=== PATIENT | female | born 1995 | race Caucasian/White ===

== ENCOUNTER 2017-06-03 14:46 | Inpatient (IN) ==
[2017-06-03 13:31] LABS: Amphetamine Screen,Urine Negative ng/mL (Cutoff=1000); Barbiturate Screen,Urine Negative ng/mL (Cutoff=200); Benzodiazepines Screen,Urine Negative ng/mL (Cutoff=200); Cannabinoid Screen,Urine Negative ng/mL (Cutoff = 50); Cocaine Screen,Urine Negative ng/mL (Cutoff= 300); Opiate Screen,Urine Negative ng/mL (Cutoff=300); Phencyclidine Screen,Urine Negative ng/mL (Cutoff=25)
--- NOTE | 2017-06-03 14:36 | OB/GYN History & Physical ---
Date of Encounter: 06/03/17 Time of Encounter: 14:20 Assessment and Plan (1) 38 weeks gestation of Current visit: Yes Status: Acute (2) SROM (spontaneous rupture of membranes) Current visit: Yes Status: Acute Nitrazine test was positive. Patient will be admitted for labor and delivery. - IV fluids. - Pain control - FHR monitoring. - NPO - CBC - pain control. History of Present Illness Chief complaint: Labor evaluation HPI: Ms. Shearer is a 21 year old female at 38 4/7 wks gestation that presents for labor evaluation. Patient says she presented to the clinic yesterday with some vaginal bleeding. She says that around 0400 am today she noticed some vaginal fluid leakage. She denies contractions. She admits to good movement. She denies any chest pain, shortness of breath, fever, chills, headaches, vision changes, nausea, and vomiting. GBS: negative Blood Type: A - HIV Ag/Ab: non-reactive T. Pallidum Ab: negative Rubella Ab: positive HepBSAb: non-reactive (12/16/16) All other labs normal. Past Med Surg Social Fam HX - Past Medical History Medical history: no medical history Psychiatric history: bipolar, depression - Social History Smoking Status: Never smoker Smokeless Tobacco Status: No Alcohol use: none Drug use: none Obstetrical History - Pregnancies : 2 Para: 1 Term: 1 : 0 Ab's: 0 Livin Medications and Allergies No Known Home Drugs 06/03/17 [History] 3 Allergy/AdvReac Type Severity Reaction Status Date / Time ciprofloxacin [From Cipro] Allergy Hives Verified 11/15/15 19:46 Exam - Constitutional Constitutional: well developed, well nourished, no acute distress, average body habitus - Lungs Respiratory exam: CTAB - Cardiovascular Cardiovascular exam: RRR, +S1, +S2 - Abdomen Abdomen: Present: bowel sounds normal, gravid, non tender - Extremities Extremities exam: full ROM, normal capillary refill, normal inspection, radial pulses palpable and symmetrical Deep Tendon Reflex Grade: 2+ Normal - Cervix Dilation: 4 (per nurse) Results Result Diagrams: 06/03/17 12:59 All other labs normal. - VTE Reasons for not Prescribing Prophylaxis: Treatment not Indicated - Low risk for VTE - Attending Attestation I examined this patient and my medical decision-making was reviewed with the Resident Physician. I agree with the documented findings, disposition and treatment plan as described except to the extent set forth below. Kirstin Lutz DO
[~2017-06-03 14:46] MED LIST: *HR* Nalbuphine 20 MG/ML AMPUL IVP PRN; Famotidine 20 MG/2 ML VIAL IVP PRN; Metoclopramide 10 MG/2 ML VIAL IVP PRN; Naloxone 0.4 MG/ML INJ IVP PRN; Ondansetron 4 MG/2 ML VIAL IVP PRN
[2017-06-03] MEDS ORDERED: Oxytocin 20 units/ LR 1000 mL 20 UNIT/1,000 ML BAG IVC SCH (15:00)
[2017-06-03] MEDS ORDERED: Ringers Solution, Lactated 1,000 ML IVC SCH (15:00)
[2017-06-03 15:31] LABS: Basophils % 0.2 %; Eosinophils # 0.1 K/mcL (0.0-0.6); Eosinophils % 0.7 %; Hematocrit 31.6 % (35.3-44.9); Hemoglobin 10.3 g/dL (11.5-15.4); Immature Granulocytes % 0.8 % (0-4); Lymphocytes # 2.1 K/mcL (0.6-4.6); Lymphocytes % 20.7 %; Mean Corpuscular HGB Conc 32.6 g/dL (31.6-35.5); Mean Corpuscular Hemoglobin 27.1 pg (28.0-33.3); Mean Corpuscular Volume 83.2 fL (83.0-100.0); Mean Platelet Volume 12.2 fL (9.4-12.4); Monocytes % 9.5 %; Platelet Count 255 K/mcL (140-400); Red Cell Distribution Width 13.6 % (11.5-14.5); Segmented Neutrophils % 68.1 %
[2017-06-03] MEDS ORDERED: Bupivacaine-MPF 0.25% 10 ML VIAL ONE (17:43)
[2017-06-03] MEDS ORDERED: *HR* FentaNYL (PF) 100 MCG/2 ML VIAL ONE (17:43)
[2017-06-03] MEDS ORDERED: Epidural Premix (fent/bupiv) 110 ML EP ONE (17:48)
[2017-06-03] MEDS ORDERED: EPHEDrine 50 MG/ML VIAL IVP PRN (18:23)
[2017-06-03] MEDS ORDERED: Ondansetron 4 MG/2 ML VIAL IVP PRN (18:23)
[2017-06-03] MEDS ORDERED: Bupivacaine-MPF 0.25% 10 ML VIAL EP ONE (18:23)
[2017-06-03] MEDS ORDERED: Naloxone 0.4 MG/ML INJ IVP PRN (18:23)
[2017-06-03] MEDS ORDERED: *HR* FentaNYL (PF) 100 MCG/2 ML VIAL EP ONE (18:23)
--- NOTE | 2017-06-03 18:29 | Anesthesia Evaluation PreOp ---
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 Physician watching growth over time.) Other Medical History: Denies Any Significant HX Anesthesia History: No Prior Anesthetic Complications : Yes Alcohol Use: none Drug use: none Medications and Allergies No Known Home Drugs 06/03/17 [History] 3 Allergy/AdvReac Type Severity Reaction Status Date / Time ciprofloxacin [From Cipro] Allergy Hives Verified 11/15/15 19:46 - Meds/Allergy Pre-op Review Medications Reviewed: Yes Allergies Reviewed: Yes Beta Blockers on Current Med List: No Anesthesia Results - Labs 06/03/17 12:59 Anesthesia Exam BP 121/60 P 73 R 18 Height: 5'9" Weight: 109.4kg NPO (# of Hours): 4 Pain Scale: 10 (with contractions) Pain Scale Used: Numeric (1 - 10) - HEENT Pupil (Motor): Pupils equal Mallampati: II Teeth: Normal Oral Opening: Greater than 3 - MANAGER ASSET MANAGEMENT LOC: Oriented MANAGER ASSET MANAGEMENT Motor: Normal RUE, Normal LUE, Normal RLE, Normal LLE, Normal Face MANAGER ASSET MANAGEMENT Sensory: Normal: RUE, LUE, RLE, LLE, Face - Cardiac Rhythm: Regular Murmur: None JVD: No Carotid Bruit: No - Pulmonary Breath Sounds: bilateral Clear Respiratory Effort: Symmetrical Anesthesia Assess/Plan ASA Score: 2 Modified Skyler Scale for Level of Consciousness: Cooperative, oriented, and tranquil Anesthetic Plan: Regional Autologous Blood: No Monitoring Plan: Standard Monitors Recovery Plan: Other
[2017-06-03] MEDS ORDERED: Epidural Premix (fent/bupiv) 110 ML EP SCH (18:30)
--- NOTE | 2017-06-03 18:39 | Anesthesia Procedures ---
Date of Encounter: 06/03/17 Time of Encounter: 17:53 Procedures: Anesthesia - Epidural/Spinal Patient ID/Chart reviewed: Yes Patient examined: Yes OB Eval: Gestational age: 38 weeks OB Eval: : 2 OB Eval: Hx Para: 1 OB Eval: Dilated at (cm): 5 OB Eval: Contractions: Non-stressed pattern Consent Obtained: Yes Supplemental Oxygen: None/Room Air Site Prep: Aseptic Technique, Sterile prep and drape, Povidone-Iodine 1% Patient position: upright Local Anesthetic: Lidocaine 1% Amount of Local Anesthetic used: 3 Touhy Needle Gauge: 18 Touhy Needle Depth (cm): 6 Catheter Depth at Skin (cm): 15 Test Dose (1.5% Lido + Epi): Volume given (mls): 3 Test Dose Result: Negative Loading Dose: 0.25% Marcaine (mls): 10 Loading Dose: Fentanyl (mcg): 100 Loading Dose Administered: Thru Catheter Infusion Med: 0.125% Bupivacaine w/ 2 mcg/ml Fentanyl Infusion Rate (mls/hr): [address]: Tegaderm, Tape Interspace Used: L4-L5 Loss of Resistance (ARTUR): Yes Blood: No CSF: No Paresthesia: No Procedure: CHANTAL placed 1st pass in upright position with no immediate noted complications. VSS and FHT stable throughout Vitals + FHT's: 1753 BP 121/60 P 73 R 20 1813 116/60 P 72 R 16 FHT 120s
--- NOTE | 2017-06-03 20:44 | OB Labor Progress Note ---
Date of Encounter: 06/03/17 Time of Encounter: 20:41 Labor Progress Note - Subjective Subjective: RN having difficulty keeping baby on the monitor and requests FSE. Mom is comfortable with epidural - Cervix Cervix: 5.5/75/-3 vertex - Heart Tones Heart Tones: 115, with accels - [place]: infrequent contractions, pit just now restarted - Interventions Interventions: IUPC and FSE placed without difficulty - Plan Plan: Continue pitocin induction
--- NOTE | 2017-06-03 23:33 | OB/GYN Procedure Note ---
Delivery - Delivery Date: 06/03/17 Provider: Kirstin Lutz (Saul Gomes) Intrapartum events: none Delivery augmentation: pitocin Delivery monitor: external FHT, external uterine, internal uterine Anesthesia: epidural Estimated Blood Loss: 200 - (s) Infant A Delivery Date: 06/03/17 Delivery Time: 23:17 Presentation: vertex Position: CANDIS Route of delivery: Gender: Male Viability: Viable Pounds: 7 Ounces: 2 Weight Gram: 3.225 kg at 1 minute: 9 at 5 mins: 9 Shoulder Dystocia: not encountered Specimens collected: cord blood Placenta: spontaneous Cord: 3 umbilical vessels - Repair Episiotomy: none Laceration Description: Superficial - Complications Delivery complications: none Delivery comments: Called to room with patient complete and +2 station. Under maternal effort she delivered a viable male weighing 7 lbs. 2 oz. and Apgars 9 and 9 at one and 5 minutes respectively over an intact perineum. Following delivery of the head there was no nuchal cord encountered. was placed on mom's abdomen and cord was allowed to cease pulsations. Cord was clamped and cut. Cord blood was collected. Placenta delivered spontaneously, complete, and intact with a three-vessel cord. There were superficial bilateral labial lacerations that were hemostatic without repair. Mother and infant are recovering in the LDR in stable condition.
[2017-06-04] MEDS ORDERED: Oxytocin 20 units/ LR 1000 mL 20 UNIT/1,000 ML BAG IVC SCH (01:51)
[2017-06-04] MEDS ORDERED: *HR* Oxytocin 10 UNIT/ML VIAL IM ONE (01:51)
[2017-06-04] MEDS ORDERED: Rho Immune Globulin 1,500 UNIT SYRINGE IM PRN (01:51)
[2017-06-04] MEDS: Ibuprofen 600 MG TABLET PO PRN ×3 (08:38→20:46)
[2017-06-04] MEDS: Prenatal Vit/FA 1 EACH TABLET PO SCH (08:38)
--- NOTE | 2017-06-04 11:40 | OB/GYN Progress Note ---
Date of Encounter: 06/04/17 Time of Encounter: 11:38 - Assessment and Plan (1) (normal spontaneous vaginal delivery) Current Visit: Yes Status: Acute Continue care. Subjective - Subjective Principal diagnosis: s/p Interval history: Doing well without c/o. Good pain control. Appropriate lochia and cramping. Objective - Vital Signs Latest vital signs: Vital Signs Temp Pulse Resp BP Pulse Ox 06/04/17 08:33 98.8 F 67 18 103/69 97 06/04/17 04:05 98.4 F 67 16 109/66 99 06/04/17 03:00 98.2 F 77 16 115/73 97 06/04/17 02:00 97.7 F 74 16 115/78 96 Intake and Output 06/03/17 06/04/17 06/04/17 23:59 07:59 15:59 Output Total 550 / 550 Balance -550 / -550 Output: Urine 550 / 550 Other: Weight 106.4 kg Patient Weight 06/04/17 23:59 Weight 106.4 kg - I&O's I&O's: Intake & Output 06/01/17 06/02/17 06/03/17 06/04/17 23:59 23:59 23:59 23:59 Output Total 550 / 550 Balance -550 / -550 Weight 109.4 kg 106.4 kg - Exam Lungs: bilateral: normal Chest: Normal S1, Normal S2 Abdomen: Present: soft - Labs Labs: Abnormal lab results RBC 3.80 M/mcL (3.82-4.97) L 06/03/17 12:59 Hgb 10.3 g/dL (11.5-15.4) L 06/03/17 12:59 Hct 31.6 % (35.3-44.9) L 06/03/17 12:59 MCH 27.1 pg (28.0-33.3) L 06/03/17 12:59
[2017-06-04] MEDS: Acetaminophen 325 MG TABLET PO PRN (20:47)
[2017-06-05] MEDS: Ibuprofen 600 MG TABLET PO PRN (02:53)
[2017-06-05] MEDS: Acetaminophen 325 MG TABLET PO PRN (02:53)
--- NOTE | 2017-06-05 07:54 | Discharge Summary ---
Date of Encounter: 06/05/17 Time of Encounter: 07:45 - Discharge Diagnosis (1) 38 weeks gestation of Priority: Primary Status: Resolved (2) SROM (spontaneous rupture of membranes) Priority: Primary Status: Resolved (3) (normal spontaneous vaginal delivery) Priority: Primary Status: Resolved (4) anemia Priority: Primary Status: Acute - Discharge Medications Prescriptions: Ibuprofen [Motrin] 600 mg PO Q6HR PRN #60 tablet PRN Reason: Cramping Docusate [Colace] 100 mg PO BID #30 capsule Ferrous Sulfate 325 mg PO DAILY #30 tablet Home Medications: Docusate [Colace] 100 mg PO BID #30 capsule 06/05/17 [Rx] Ferrous Sulfate 325 mg PO DAILY #30 tablet 06/05/17 [Rx] Ibuprofen [Motrin] 600 mg PO Q6HR PRN #60 tablet 06/05/17 [Rx] Vit/FA 1 each PO DAILY tablet 06/05/17 [Rx] Allergies/Adverse Reactions: 3 Allergy/AdvReac Type Severity Reaction Status Date / Time ciprofloxacin [From Cipro] Allergy Hives Verified 11/15/15 19:46 Data Procedures and tests throughout hospitalization: Laboratory Tests 06/03/17 06/03/17 06/04/17 12:58 12:59 00:15 WBC 10.3 RBC 3.80 L Hgb 10.3 L Hct 31.6 L MCV 83.2 MCH 27.1 L MCHC 32.6 RDW 13.6 Plt Count 255 MPV 12.2 Immature Gran % 0.8 Seg Neutrophils % 68.1 Lymphocytes % 20.7 Monocytes % 9.5 Eosinophils % 0.7 Basophils % 0.2 Neutrophils # 7.0 Lymphocytes # 2.1 Monocytes # 1.0 Eosinophils # 0.1 Basophils # 0.0 Urine Opiates Screen Negative Ur Barbiturates Screen Negative Ur Phencyclidine Scrn Negative Ur Amphetamines Screen Negative U Benzodiazepines Scrn Negative Urine Cocaine Screen Negative U Marijuana (THC) Screen Negative Screen NEGATIVE Baby's Blood Type O RH POSITIVE Mother's Blood Type A RH NEGATIVE Rhogam Indicated YES Rhogam Req for Mother 1 Labs on day of discharge: Labs from last 24 hours 06/04/17 00:15 Screen NEGATIVE Baby's Blood Type O RH POSITIVE Mother's Blood Type A RH NEGATIVE Rhogam Indicated YES Rhogam Req for Mother 1 Date of admission: 06/03/17 14:46 Consults: 06/04/17 01:51 Consult to Weaving Teacher [CONS] Routine Reason for SW Consult: assess for needs Discharging clinician: Saul Hurley Anticipated date of discharge: 06/05/17 - Patient Status Disposition: Home, Self-Care Condition: Good Functional capacity at discharge: independent ambulation Overall status at discharge: patient is progressing back to baseline - Discharge Instructions Instructions: Anemia (GEN) - Diet and Activity Activity: resume usual activities as tolerated Diet: regular diet Hospital Course Reason for admission: rupture of membranes Delivery: Episiotomy: none Laceration: 1st degree Other procedures: none complications: none Discharge diagnosis: IUP at term delivered baby: male Hospital course: Ms. Shearer is a 21 year old female that presented at 38 4/7 wks gestation for labor evaluation. Patient says she presented to the clinic the day before admission with some vaginal bleeding. She says that around 0400 on the day of admission, she noticed some vaginal fluid leakage. She denied contractions. She admitted to good movement. The attending physician was called to room with patient complete and +2 station. Under maternal effort she delivered a viable male weighing 7 lbs. 2 oz. and Apgars 9 and 9 at one and 5 minutes respectively over an intact perineum. Following delivery of the head there was no nuchal cord encountered. was placed on mom's abdomen and cord was allowed to cease pulsations. Cord was clamped and cut. Cord blood was collected. Placenta delivered spontaneously, complete, and intact with a three-vessel cord. There were superficial bilateral labial lacerations that were hemostatic without repair. Mother and infant are recovering in the LDR in stable condition. When seen today, patient says she is doing well and in good mood. She says her baby is doing well and she is bottle feeding the baby instead of breast-feeding do to personal preference. She says she has minimal abdominal pain. Admits to minimal vaginal bleeding and says it has been improving since the delivery. She denies any fever, chills, nausea, vomiting, chest pain, shortness of breath, headaches, vision changes, or dizziness. She has a follow-up appointment on 07/05/[address] Lutz. - Delivery Date: 06/03/17 Provider: Kirstin Lutz (Saul Gomes) Intrapartum events: none Delivery augmentation: pitocin Delivery monitor: external FHT, external uterine, internal uterine Anesthesia: epidural Estimated Blood Loss: 200 - (s) Infant A Infant Delivery Date: 06/03/17 Infant Delivery Time: 23:17 Presentation: vertex Position: CANDIS Route of delivery: Gender: Male Viability: Viable Pounds: 7 Ounces: 2 Weight Gram: 3.225 kg at 1 minute: 9 at 5 mins: 9 Shoulder Dystocia: not encountered Specimens collected: cord blood Placenta: spontaneous Cord: 3 umbilical vessels - Repair Episiotomy: none Laceration Description: Superficial - Complications Delivery complications: none Delivery comments: Time Attestation: Total time spent providing and/or coordinating discharge services: Time Spent: Less than 30 minutes Exam - Constitutional Vitals: Temp Pulse Resp BP Pulse Ox 98.4 F 66 18 108/69 97 06/04/17 19:56 06/04/17 19:56 06/04/17 19:56 06/04/17 19:56 06/04/17 19:56 General appearance IM: A&O X 3, pleasant, no acute distress, answers questions appropriately - Respiratory Respiratory exam: Present: CTAB - Cardiovascular Cardiovascular exam IM: Present: RRR, +S1, +S2 - GI/Abdominal GI/Abdominal exam IM: normal bowel sounds, soft - Uterine Tone: Firm - Extremities Exam Extremities exam IM: Present: full ROM, normal capillary refill, normal inspection, radial pulses palpable and symmetrical. Absent: cyanotic, pedal edema Additional comments: Pedal pulses intact and symmetrical bilaterally. - Neurological Exam Neurological exam: reflexes normal, no focal deficits - Attending Attestation I examined this patient and my medical decision-making was reviewed with the Resident Physician. I agree with the documented findings, disposition and treatment plan as described except to the extent set forth below. NISSA Gerard
[2017-06-05 07:59] VITALS: BP 125/85
[2017-06-05] MEDS: Prenatal Vit/FA 1 EACH TABLET PO SCH (08:57)
== END 2017-06-05 12:35 | disposition home or self-care (01) | DRG 775 ==
LOC: 1NENULAB → 1NENUOBS 06-04 01:51
PROVIDERS: ADMIT Obstetrics & Gynecology; ATTEND Obstetrics & Gynecology